=== PATIENT | male | born 1950 | race Caucasian/White ===

== ENCOUNTER 2020-11-14 05:25 | Observation (INO) | payer MEDICARE, OTHER ==
[2020-11-14] MEDS ORDERED: NITROGLYCERIN SL TABS 0.4 MG TAB SUBLINGUAL PRN (05:41)
--- NOTE | 2020-11-14 05:42 | ED ---
Chest Pain HPI - General Chief Complaint: Chest Pain Stated Complaint: hypotension Time Seen by Provider: 11/14/20 05:29 Source: patient, RN notes reviewed, old records reviewed Mode of arrival: ambulatory Limitations: no limitations - History of Present Illness Initial Comments: This is a 70-year-old male 7 transfer, patient accepted as a transfer patient for chest pain a she had chest pain prior to prior ER visit currently without chest pain. Recent cardiac surgery significant for bypass as well as valve replacement. Patient is unethical evaluation denying fever cough congestion and no current shortness of breath MD Complaint: chest pain -: hour(s) Onset: during rest Pain Location: substernal, left chest Pain Radiation: LUE Severity: mild Severity scale (1-10): 2 Quality: aching, sharp Consistency: intermittent, now resolved Improves With: nothing Worsens With: nothing Other Symptoms: palpitations Treatments Prior to Arrival: none - Related Data Home Medications Medication Instructions Recorded Confirmed Acetaminophen Tab [Tylenol Tab] 1,000 mg PO Q8H PRN 11/14/20 11/14/20 Aspirin EC [Ecotrin Low Dose] 81 mg PO HS 11/14/20 11/14/20 Atorvastatin [Lipitor] 40 mg PO HS 11/14/20 11/14/20 Clopidogrel Bisulfate [Plavix] 75 mg PO DAILY 11/14/20 11/14/20 Furosemide [Lasix] 20 mg PO DAILY 11/14/20 11/14/20 Gabapentin 300 mg PO TID 11/14/20 11/14/20 Metoprolol Tartrate [Lopressor] 50 mg PO BID 11/14/20 11/14/20 Omeprazole [PriLOSEC] 20 mg PO AC-SUPPER 11/14/20 11/14/20 metFORMIN HCL [Glucophage] 500 mg PO AC-BID 11/14/20 11/14/20 Allergies Allergy/AdvReac Type Severity Reaction Status Date / Time No Known Allergies Allergy Verified 11/14/20 06:24 Review of Systems ROS Statement: Those systems with pertinent positive or pertinent negative responses have been documented in the HPI. ROS Other: All systems not noted in ROS Statement are negative. EKG Findings - EKG Comments: EKG Findings:: EKG is sinus rhythm 72, [place] 172 QRS 106 QTc 455 Past Medical History Past Medical History: COPD, Diabetes Mellitus, Myocardial Infarction ([place]), Renal Disease History of Any Multi-Drug Resistant Organisms: None Reported Past Surgical History: Coronary Bypass/CABG Additional Past Surgical History / Comment(s): valve replacement , Past Psychological History: No Psychological Hx Reported Smoking Status: Former smoker Past Alcohol Use History: None Reported Past Drug Use History: None Reported - Past Family History Father Family Medical History: Cancer Mother Family Medical History: Myocardial Infarction ([place]) Sister(s) Family Medical History: Cancer Brother(s) Family Medical History: Myocardial Infarction ([place]) General Exam Limitations: no limitations General appearance: alert, in no apparent distress Head exam: Present: atraumatic, normocephalic, normal inspection Eye exam: Present: normal appearance, PERRL, EOMI. Absent: scleral icterus, conjunctival injection, periorbital swelling ENT exam: Present: normal exam, mucous membranes moist Neck exam: Present: normal inspection. Absent: tenderness, meningismus, lymphadenopathy Respiratory exam: Present: normal lung sounds bilaterally. Absent: respiratory distress, wheezes, rales, rhonchi, stridor Cardiovascular Exam: Present: regular rate, normal rhythm, normal heart sounds. Absent: systolic murmur, diastolic murmur, rubs, gallop, clicks GI/Abdominal exam: Present: soft, normal bowel sounds. Absent: distended, tenderness, guarding, rebound, rigid Extremities exam: Present: normal inspection, full ROM, normal capillary refill. Absent: tenderness, pedal edema, joint swelling, calf tenderness Back exam: Present: normal inspection Neurological exam: Present: alert, oriented X3, CN II-XII intact Psychiatric exam: Present: normal affect, normal mood Skin exam: Present: warm, dry, intact, normal color. Absent: rash Course Vital Signs 11/14/20 11/14/20 11/14/20 05:31 06:08 06:25 Temperature 98.7 F 98.7 F Pulse Rate 70 68 68 Pulse Rate [ [employer]ductor Package Symbol Stamper ] Respiratory 18 18 18 Rate Blood Pressure 122/60 140/68 140/68 Blood Pressure [Right Arm] O2 Sat by Pulse 99 98 98 Oximetry 11/14/20 06:32 Temperature 97.9 F Pulse Rate Pulse Rate [ 68 Sem[employer]ductor Package Symbol Stamper ] Respiratory 18 Rate Blood Pressure Blood Pressure 140/71 [Right Arm] O2 Sat by Pulse 97 Oximetry - Reevaluation(s) Reevaluation #1: 11/14/20 06:35 Attic record is reviewed 11/14/20 06:35 Spoke with transferring doctor regarding patient Reevaluation #2: 11/14/20 06:35 Transfer paperwork has been reviewed troponin 0.57 Chest Pain MDM - MDM 70 male DF with significant heart disease and recent heart disease history, patient will be admitted for cardiac observation and management Disposition Clinical Impression: Chest pain Disposition: ADMITTED IP TO THIS HOSP Condition: Undetermined Is patient prescribed a controlled substance at d/c from ED?: No
[2020-11-14] MEDS ORDERED: ACET/COD 300 MG/30 MG STARTER PACK 6 TAB BTL PO STA (05:45)
[2020-11-14] MEDS ORDERED: MORPHINE SULFATE 4 MG/ML SYRINGE IVP STA (05:45)
[2020-11-14 06:34] LABS: Basophils % (A) 1 %; Eosinophils # (A) 0.1 k/uL (0-0.7); Eosinophils % (A) 2 %; HCT 30.5 % (39.0-53.0); HGB 10.4 gm/dL (13.0-17.5); Lymphocytes # (A) 1.6 k/uL (1.0-4.8); Lymphocytes % (A) 23 %; MCH 32.4 pg (25.0-35.0); MCV 95.4 fL (80.0-100.0); Monocytes # (A) 0.6 k/uL (0-1.0); Monocytes % (A) 8 %; Neutrophils # (A) 4.4 k/uL (1.3-7.7); Neutrophils % (A) 64 %; Platelet Count 228 k/uL (150-450); RDW 15.3 % (11.5-15.5); WBC 6.8 k/uL (3.8-10.6)
[2020-11-14 06:40] LABS: Albumin 4.1 g/dL (3.5-5.0); Calcium 9.3 mg/dL (8.4-10.2); Potassium 5.3 mmol/L (3.5-5.1); Total Bilirubin 0.3 mg/dL (0.2-1.3); Total Protein 7.4 g/dL (6.3-8.2)
[2020-11-14 07:02] LABS: Creatine Kinase MB 2.2 ng/mL (0.0-2.4)
[2020-11-14 07:05] LABS: Glucose,Whole Blood 103 mg/dL (75-99)
[2020-11-14 07:19] LABS: Troponin I 0.129 ng/mL (0.000-0.034)
--- NOTE | 2020-11-14 11:18 | P.CRDCN ---
History of Present Illness Consult date: 11/14/20 Chief complaint: Chest pain History of present illness: This is a very pleasant 70-year-old gentleman who follow with a can patcher at the [facility] in [place] who underwent recently an open heart surgery and received aortic valve replacement along with coronary artery that is grafting 2 with unknown details at this point, the surgery was performed in September 2020 to , was transferred from another hospital to this hospital for further cardiac evaluation. He was in his usual state of health yesterday when he was at home and developed very mild discomfort at the left upper chest lasted for about 12 seconds only. He asked his to check his blood pressure and the pressure came in to be around 70 mm systolic. The patient presented to the emergency department at the local hospital where his can patcher was called at that point and advised the patient to hold lisinopril. The patient subsequently was transferred to this hospital. We consulted to see the patient mainly because of abnormal troponin which is less than 1 and seems to be flat. Currently the patient is chest pain-free and he did not have any more episodes of chest discomfort since yesterday. He denies any shortness of breath. No dizziness or lightheadedness and no feeling of heart racing or fluttering or syncope. No EKG is available at this point. Please note that the creatinine is elevated. The patient hemodynamically he is stable at this point. I am going to get a basic blood work including a d-dimer to rule out a PE. Beside that if the d-dimer came in to be abnormal we'll obtain a VQ scan and not a CTA because of the renal failure. Also I will obtain an echocardiogram with Doppler. Monitor the blood pressure and heart rate for additional 24 hours. Resume antiplatelet medications. And continue following up with him. Past Medical History Past Medical History: COPD, Diabetes Mellitus, Myocardial Infarction ([place]), Renal Disease Last Myocardial Infarction Date:: 1998 History of Any Multi-Drug Resistant Organisms: None Reported Past Surgical History: Coronary Bypass/CABG Additional Past Surgical History / Comment(s): valve replacement , Past Anesthesia/Blood Transfusion Reactions: No Reported Reaction Past Psychological History: No Psychological Hx Reported Smoking Status: Former smoker Past Alcohol Use History: None Reported Past Drug Use History: None Reported - Past Family History Father Family Medical History: Cancer Mother Family Medical History: Myocardial Infarction ([place]) Sister(s) Family Medical History: Cancer Brother(s) Family Medical History: Myocardial Infarction ([place]) Medications and Allergies Home Medications Medication Instructions Recorded Confirmed Type Acetaminophen Tab [Tylenol Tab] 1,000 mg PO Q8H PRN 11/14/20 11/14/20 History Aspirin EC [Ecotrin Low Dose] 81 mg PO HS 11/14/20 11/14/20 History Atorvastatin [Lipitor] 40 mg PO HS 11/14/20 11/14/20 History Clopidogrel Bisulfate [Plavix] 75 mg PO DAILY 11/14/20 11/14/20 History Furosemide [Lasix] 20 mg PO DAILY 11/14/20 11/14/20 History Gabapentin 300 mg PO TID 11/14/20 11/14/20 History Metoprolol Tartrate [Lopressor] 50 mg PO BID 11/14/20 11/14/20 History Omeprazole [PriLOSEC] 20 mg PO AC-SUPPER 11/14/20 11/14/20 History metFORMIN HCL [Glucophage] 500 mg PO AC-BID 11/14/20 11/14/20 History Allergies Allergy/AdvReac Type Severity Reaction Status Date / Time No Known Allergies Allergy Verified 11/14/20 06:24 Physical Exam Vitals: Vital Signs Temp Pulse Pulse Resp BP BP Pulse Ox 11/14/20 08:00 97.9 F 68 18 119/60 97 11/14/20 06:32 97.9 F 68 18 140/71 97 11/14/20 06:25 98.7 F 68 18 140/68 98 11/14/20 06:08 68 18 140/68 98 11/14/20 05:31 98.7 F 70 18 122/60 99 Intake and Output 11/13/20 11/14/20 11/14/20 22:59 06:59 14:59 Other: # Voids 1 Weight 82.1 kg - Constitutional General appearance: no acute distress - Respiratory Respiratory: bilateral: diminished - Cardiovascular Rhythm: regular Heart sounds: normal: S1, S2 Abnormal Heart Sounds: systolic murmur Results 11/14/20 06:07 11/14/20 06:07 Cardiac Enzymes 11/14/20 11/14/20 11/14/20 Range/Units 06:07 06:07 08:58 AST 31 (17-59) U/L CK-MB (CK-2) 2.2 (0.0-2.4) ng/mL Troponin I 0.129 H* 0.122 H* (0.000-0.034) ng/mL CBC 11/14/20 Range/Units 06:07 WBC 6.8 (3.8-10.6) k/uL RBC 3.20 L (4.30-5.90) m/uL Hgb 10.4 L (13.0-17.5) gm/dL Hct 30.5 L (39.0-53.0) % Plt Count 228 (150-450) k/uL Comprehensive Metabolic Panel 11/14/20 Range/Units 06:07 Sodium 134 L (137-145) mmol/L Potassium 5.3 H (3.5-5.1) mmol/L Chloride 103 (98-107) mmol/L Carbon Dioxide 22 (22-30) mmol/L BUN 46 H (9-20) mg/dL Creatinine 2.15 H (0.66-1.25) mg/dL Glucose 110 H (74-99) mg/dL Calcium 9.3 (8.4-10.2) mg/dL AST 31 (17-59) U/L ALT 39 (4-49) U/L Alkaline Phosphatase 116 (38-126) U/L Total Protein 7.4 (6.3-8.2) g/dL Albumin 4.1 (3.5-5.0) g/dL Current Medications Generic Name Dose Route Start Last Admin Trade Name Freq PRN Reason Stop Dose Admin Aspirin 325 mg 11/15/20 09:00 Aspirin 325 Mg Tab PO DAILY THANIA Nitroglycerin 0.4 mg 11/14/20 05:41 Nitroglycerin Sl Tabs 0.4 Mg Tab SUBLINGUAL Q5M PRN Chest Pain Intake and Output 11/13/20 11/14/20 11/14/20 22:59 06:59 14:59 Other: # Voids 1 Weight 82.1 kg 11/14/20 06:07 11/14/20 06:07 Assessment and Plan Assessment: Assessment #1 status post open heart surgery with aortic valve replacement and coronary artery bypass grafting #2 brief episodes of atypical chest discomfort #3 hypotension which was resolved #4 renal failure #5 multiple comorbid conditions Plan #1 restart the patient back on antiplatelet #2 restart the patient back on statin #3 obtain a basic blood work #4 obtain d-dimer #5 an echocardiogram was Doppler #6 12 please EKG
[2020-11-14 11:33] LABS: Glucose,Whole Blood 128 mg/dL (75-99)
[2020-11-14] MEDS ORDERED: ACETAMINOPHEN TAB 500 MG TAB PO PRN (11:59)
--- NOTE | 2020-11-14 12:00 | ECHOF ---
Referral Reason:elevTrop MEASUREMENTS -------- HEIGHT: 170.2 cm WEIGHT: 82.1 kg BP: 140/71 RVIDd: 3.5 cm (< 3.3) IVSd: 1.4 cm (0.6 - 1.1) LVIDd: 4.7 cm (3.9 - 5.3) LVPWd: 1.5 cm (0.6 - 1.1) IVSs: 2.0 cm LVIDs: 3.2 cm LVPWs: 2.0 cm LA Diam: 3.9 cm (2.7 - 3.8) LAESV Index (A-L): 26.95 ml/m Ao Diam: 3.2 cm (2.0 - 3.7) MV EXCURSION: 21.171 mm (> 18.000) MV EF SLOPE: 77 mm/s (70 - 150) EPSS: 0.8 cm MV E Erick: 1.14 m/s MV DecT: 233 ms MV A Erick: 1.01 m/s MV E/A Ratio: 1.12 AV maxP.87 mmHg AV meanP.93 mmHg RAP: 5.00 mmHg RVSP: 36.08 mmHg FINDINGS -------- Sinus rhythm. This was a technically adequate study. The left ventricular size is normal. There is moderate concentric left ventricular hypertrophy. O verall left ventricular systolic function is normal with, an EF between 60 - 65 %. The right ventricle is mildly enlarged. Normal LA size by volume 22+/-6 ml/m2. The right atrium is normal in size. Interatrial and interventricular septum intact. Peak/mean gradient across the Aortic Valve is 21.87mmHg / 7.93mmHg. Normally functioning bioprosthe tic valve. Mild mitral annular calcification present. Mild mitral regurgitation is present. Mild tricuspid regurgitation present. There is mild pulmonary hypertension. The right ventricular systolic pressure, as measured by Doppler, is 36.08mmHg. There is no pulmonic regurgitation present. The aortic root size is normal. Normal inferior vena cava with normal inspiratory collapse consistent with estimated right atrial pre ssure of 5 mmHg. There is no pericardial effusion. CONCLUSIONS -------- 1. The left ventricular size is normal. 2. There is moderate concentric left ventricular hypertrophy. 3. Overall left ventricular systolic function is normal with, an EF between 60 - 65 %. 4. The right ventricle is mildly enlarged. 5. Peak/mean gradient across the Aortic Valve is 21.87mmHg / 7.93mmHg. 6. Normally functioning bioprosthetic valve. 7. Mild mitral annular calcification present. 8. Mild mitral regurgitation is present. 9. Mild tricuspid regurgitation present. 10. There is mild pulmonary hypertension. 11. The right ventricular systolic pressure, as measured by Doppler, is 36.08mmHg. 12. There is no pericardial effusion. MARINE ELECTRICIAN APPRENTICE: Francy Lozano RDCS
[2020-11-14] MEDS ORDERED: FUROSEMIDE 20 MG TAB PO SCH (12:15)
[2020-11-14] MEDS: METOPROLOL TARTRATE 50 MG TAB PO SCH ×2 (12:27→21:17)
[2020-11-14] MEDS: metFORMIN 500 MG TAB PO SCH ×2 (12:27→17:18)
[2020-11-14] MEDS: CLOPIDOGREL 75 MG TAB PO SCH (12:27)
[2020-11-14 16:43] LABS: Glucose,Whole Blood 155 mg/dL (75-99)
[2020-11-14] MEDS: PANTOPRAZOLE 40 MG TABLET PO SCH (17:18)
[2020-11-14] MEDS: GABAPENTIN 300 MG CAP PO SCH ×2 (17:18→21:17)
[2020-11-14 20:16] LABS: Glucose,Whole Blood 151 mg/dL (75-99)
[2020-11-14] MEDS ORDERED: ASPIRIN 81 MG PO SCH (21:00)
[2020-11-14] MEDS ORDERED: ATORVASTATIN 40 MG TAB PO SCH (21:00)
[2020-11-14 23:06] LABS: Cholesterol 124 mg/dL (<200); HDL Cholesterol 32 mg/dL (40-60); LDL Cholesterol,Calculated 71 mg/dL (0-99); Triglycerides 104 mg/dL (<150)
--- NOTE | 2020-11-15 01:20 | P.HPIM ---
History of Present Illness H&P Date: 11/14/20 Chief Complaint: chest Pain Patient is a 70-year-old male with a known history of diabetes type 2 [id number], COPD, history of AR and history of coronary artery dis ease/CABG and previous history of smoking presents to ER with the complaints of chest pain mainly substernal with radiation to left upper extremity. Patient does have sharp aching pain intermittent without any associated nausea or vomiting. Chest pain lasted for few seconds. Blood pressure was found to be low with SBP in 70s when he checked at home. Patient initially presents to local hospital and was told to hold lisinopril due to hypotension. Subsequently patient was transferred to [facility]. Blood pressure was 122/60 on admission and pulse ox 99% on room air. Troponin 0 0.129, 0.122 and 0.131 BUN 46 and creatinine 2.15, sodium 134 and potassium 5.3 Lipase level is 446 on admission. Patient follows with [facility]. Review of Systems Constitutional: Patient denies any fever or chills . No generalized weakness or weight loss. Abdomen: Patient denied nausea vomiting and diarrhea and abdominal pain. Cardiovascular: Patient denies any chest pain or short of breath no palpitations. Respiratory: patient denied any cough or sputum production. No shortness of breath Neurologic: Patient denied any numbness or tingling headache. Musculoskeletal: Patient denies any complaints of joint swelling or deformity. Skin: Negative Psychiatric: Negative Endocrine: No heat or cold intolerance. No recent weight gain. Genitourinary: No dysuria or hematuria. All other 14 point ROS negative except the above Past Medical History Past Medical History: COPD, Diabetes Mellitus, Myocardial Infarction ([place]), Renal Disease Last Myocardial Infarction Date:: 1998 History of Any Multi-Drug Resistant Organisms: None Reported Past Surgical History: Coronary Bypass/CABG Additional Past Surgical History / Comment(s): valve replacement , Past Anesthesia/Blood Transfusion Reactions: No Reported Reaction Past Psychological History: No Psychological Hx Reported Smoking Status: Former smoker Past Alcohol Use History: None Reported Past Drug Use History: None Reported - Past Family History Father Family Medical History: Cancer Mother Family Medical History: Myocardial Infarction ([place]) Sister(s) Family Medical History: Cancer Brother(s) Family Medical History: Myocardial Infarction ([place]) Medications and Allergies Home Medications Medication Instructions Recorded Confirmed Type Acetaminophen Tab [Tylenol Tab] 1,000 mg PO Q8H PRN 11/14/20 11/14/20 History Aspirin EC [Ecotrin Low Dose] 81 mg PO HS 11/14/20 11/14/20 History Atorvastatin [Lipitor] 40 mg PO HS 11/14/20 11/14/20 History Clopidogrel Bisulfate [Plavix] 75 mg PO DAILY 11/14/20 11/14/20 History Furosemide [Lasix] 20 mg PO DAILY 11/14/20 11/14/20 History Gabapentin 300 mg PO TID 11/14/20 11/14/20 History Metoprolol Tartrate [Lopressor] 50 mg PO BID 11/14/20 11/14/20 History Omeprazole [PriLOSEC] 20 mg PO AC-SUPPER 11/14/20 11/14/20 History metFORMIN HCL [Glucophage] 500 mg PO AC-BID 11/14/20 11/14/20 History Allergies Allergy/AdvReac Type Severity Reaction Status Date / Time No Known Allergies Allergy Verified 11/14/20 06:24 Physical Exam Vitals: Vital Signs Temp Pulse Pulse Resp BP BP Pulse Ox 11/14/20 12:00 97.4 F L 72 18 149/67 96 11/14/20 08:00 97.9 F 68 18 119/60 97 11/14/20 06:32 97.9 F 68 18 140/71 97 11/14/20 06:25 98.7 F 68 18 140/68 98 11/14/20 06:08 68 18 140/68 98 11/14/20 05:31 98.7 F 70 18 122/60 99 Intake and Output 11/13/20 11/14/20 11/14/20 22:59 06:59 14:59 Other: # Voids 1 Weight 82.1 kg PHYSICAL EXAMINATION: Patient is lying in the bed comfortably, no acute distress, awake alert and oriented.. HEENT: Normocephalic. Neck is supple. Pupils reactive. Nostrils clear. Oral cavity is moist. Ears reveal no drainage. Neck reveals no JVD, carotid bruits, or thyromegaly. CHEST EXAMINATION: Trachea is central. Symmetrical expansion. Lung christian clear to auscultation and percussion. CARDIAC: Normal S1, S2 with no gallops. No murmurs ABDOMEN: Soft. Bowel sounds normal. No organomegaly. No abdominal bruits. Extremities: reveal no edema. No clubbing or cyanosis Neurologically awake, alert, oriented x3 with well-coordinated movements. No focal deficits noted Skin: No rash or skin lesions. Psychiatric: Coperative. Nonsuicidal Musculoskeletal: No joint swelling or deformity. Normal range of motion. Results CBC & Chem 7: 11/14/20 06:07 11/14/20 06:07 Labs: Abnormal Lab Results - Last 24 Hours (Table) 11/14/20 11/14/20 11/14/20 Range/Units 06:07 06:07 06:07 RBC 3.20 L (4.30-5.90) m/uL Hgb 10.4 L (13.0-17.5) gm/dL Hct 30.5 L (39.0-53.0) % Sodium 134 L (137-145) mmol/L Potassium 5.3 H (3.5-5.1) mmol/L BUN 46 H (9-20) mg/dL Creatinine 2.15 H (0.66-1.25) mg/dL Glucose 110 H (74-99) mg/dL POC Glucose (mg/dL) (75-99) mg/dL Troponin I 0.129 H* (0.000-0.034) ng/mL Lipase 446 H (23-300) U/L 11/14/20 11/14/20 11/14/20 Range/Units 07:02 08:58 11:30 RBC (4.30-5.90) m/uL Hgb (13.0-17.5) gm/dL Hct (39.0-53.0) % Sodium (137-145) mmol/L Potassium (3.5-5.1) mmol/L BUN (9-20) mg/dL Creatinine (0.66-1.25) mg/dL Glucose (74-99) mg/dL POC Glucose (mg/dL) 103 H 128 H (75-99) mg/dL Troponin I 0.122 H* (0.000-0.034) ng/mL Lipase (23-300) U/L 11/14/20 Range/Units 11:35 RBC (4.30-5.90) m/uL Hgb (13.0-17.5) gm/dL Hct (39.0-53.0) % Sodium (137-145) mmol/L Potassium (3.5-5.1) mmol/L BUN (9-20) mg/dL Creatinine (0.66-1.25) mg/dL Glucose (74-99) mg/dL POC Glucose (mg/dL) (75-99) mg/dL Troponin I 0.131 H* (0.000-0.034) ng/mL Lipase (23-300) U/L Thrombosis Risk Factor Assmnt - DVT/VTE Prophylaxis DVT/VTE Prophylaxis: Pharmacologic Prophylaxis ordered - Choose All That Apply Each Factor Represents 1 point: Obesity (BMI >25) Each Risk Factor Represents 2 Points: Age 61-74 years Each Risk Factor Represents 3 Points: Family history of DVT/PE Thrombosis Risk Factor Assessment Total Risk Factor Score: 6 Thrombosis Risk Factor Assessment Level: High Risk Assessment and Plan Assessment: Atypical chest pain with mildly elevated troponin level. Status post CABG and aortic valve replacement Hypotension resolved now. Acute kidney injury with creatinine level 2.15. Baseline not known. Elevated lipase level 445 Possible underlying CKD stage III Diabetes type 2 [id number] Hypertension DVT prophylaxis with heparin subcu Plan: Patient will be continued on telemetry monitoring and serial EKG and troponins. Continue with aspirin, statins and cardiology was consulted. Blood pressure medications is on hold. Lasix and lisinopril on hold at this time. Continue with metoprolol. 2D echocardiogram was ordered. Metformin is on hold due to elevated creatinine level and continue with insulin sliding scale. Follow-up closely. Time with Patient: Greater than 30
[2020-11-15 06:09] LABS: Glucose,Whole Blood 140 mg/dL (75-99)
[2020-11-15] MEDS: INSULIN ASPART (NovoLOG) 100 UNIT/ML VIAL SQ SCH ×3 (06:43→17:02)
[2020-11-15 07:43] LABS: Basophils % (A) 0 %; Eosinophils # (A) 0.1 k/uL (0-0.7); Eosinophils % (A) 2 %; HCT 34.1 % (39.0-53.0); HGB 10.9 gm/dL (13.0-17.5); Lymphocytes # (A) 1.5 k/uL (1.0-4.8); Lymphocytes % (A) 23 %; MCH 31.2 pg (25.0-35.0); MCHC 31.9 g/dL (31.0-37.0); MCV 97.7 fL (80.0-100.0); Mean Platelet Volume 8.3; Monocytes # (A) 0.6 k/uL (0-1.0); Monocytes % (A) 9 %; Neutrophils # (A) 4.3 k/uL (1.3-7.7); Neutrophils % (A) 65 %; Platelet Count 212 k/uL (150-450); RBC 3.49 m/uL (4.30-5.90); RDW 15.6 % (11.5-15.5); WBC 6.6 k/uL (3.8-10.6)
[2020-11-15 08:00] LABS: Calcium 9.8 mg/dL (8.4-10.2); Potassium 5.3 mmol/L (3.5-5.1)
[2020-11-15] MEDS: GABAPENTIN 300 MG CAP PO SCH ×2 (08:31→17:02)
[2020-11-15] MEDS: CLOPIDOGREL 75 MG TAB PO SCH (08:31)
[2020-11-15] MEDS: METOPROLOL TARTRATE 50 MG TAB PO SCH (08:31)
[2020-11-15] MEDS: HEPARIN SODIUM,PORCINE 5,000 UNIT/ML 1 ML VIAL SQ SCH ×2 (08:31→17:02)
[2020-11-15] MEDS ORDERED: ASPIRIN 325 MG TAB PO SCH (09:00)
--- NOTE | 2020-11-15 10:23 | P.PN ---
Subjective Progress Note Date: 11/15/20 Principal diagnosis: Valvular heart disease This is a very pleasant 70-year-old gentleman who follow with a accounts payable coordinator at the [facility] in [place] who underwent recently an open heart surgery and received aortic valve replacement along with coronary artery that is grafting 2 with unknown details at this point, the surgery was performed in September 2020, was transferred from another hospital to this hospital for further cardiac evaluation. He was in his usual state of health yesterday when he was at home and developed very mild discomfort at the left upper chest lasted for about 12 seconds only. He asked his to check his blood pressure and the pressure came in to be around 70 mm systolic. The patient presented to the emergency department at the local hospital where his accounts payable coordinator was called at that point and advised the patient to hold lisinopril. The patient subsequently was transferred to this hospital. We consulted to see the patient mainly because of abnormal troponin which is less than 1 and seems to be flat. The patient was seen this morning. He denies any symptoms of chest pain or chest discomfort or shortness of breath or dizziness or lightheadedness. Yesterday we ordered a d-dimer and that came in to be abnormal and I'm going to obtain a VQ scan because of the abnormal kidney function. If the VQ scan came in to be unremarkable the patient possibly can be discharged home. Also he underwent an echocardiogram which revealed normal LV function with normally functioning bioprosthetic aortic valve. Objective - Vital Signs Vital signs: Vital Signs Temp 97.7 F 11/15/20 08:00 Pulse 74 11/15/20 08:00 Resp 16 11/15/20 08:00 BP 116/65 11/15/20 08:00 Pulse Ox 97 11/15/20 08:00 Intake & Output 11/14/20 11/15/20 11/15/20 18:59 06:59 18:59 Intake Total 1260 0 180 Output Total 0 Balance 1260 0 180 Weight 80.8 kg Intake: Oral 1260 0 180 Output: Urine 0 Other: # Voids 2 0 - Constitutional General appearance: Present: no acute distress - Respiratory Respiratory: bilateral: CTA - Cardiovascular Rhythm: regular Heart sounds: normal: S1, S2 Abnormal Heart Sounds: Present: systolic murmur - Labs CBC & Chem 7: 11/15/20 06:58 11/15/20 06:58 Labs: Abnormal Lab Results - Last 24 Hours (Table) 11/14/20 11/14/20 11/14/20 Range/Units 06:07 11:30 11:35 RBC (4.30-5.90) m/uL Hgb (13.0-17.5) gm/dL Hct (39.0-53.0) % RDW (11.5-15.5) % D-Dimer (<0.60) mg/L FEU Sodium (137-145) mmol/L Potassium (3.5-5.1) mmol/L BUN (9-20) mg/dL Creatinine (0.66-1.25) mg/dL Glucose (74-99) mg/dL POC Glucose (mg/dL) 128 H (75-99) mg/dL Troponin I 0.131 H* (0.000-0.034) ng/mL HDL Cholesterol 32 L (40-60) mg/dL Lipase (23-300) U/L 11/14/20 11/14/20 11/15/20 Range/Units 16:40 20:13 06:05 RBC (4.30-5.90) m/uL Hgb (13.0-17.5) gm/dL Hct (39.0-53.0) % RDW (11.5-15.5) % D-Dimer (<0.60) mg/L FEU Sodium (137-145) mmol/L Potassium (3.5-5.1) mmol/L BUN (9-20) mg/dL Creatinine (0.66-1.25) mg/dL Glucose (74-99) mg/dL POC Glucose (mg/dL) 155 H 151 H 140 H (75-99) mg/dL Troponin I (0.000-0.034) ng/mL HDL Cholesterol (40-60) mg/dL Lipase (23-300) U/L 11/15/20 11/15/20 11/15/20 Range/Units 06:58 06:58 06:58 RBC 3.49 L (4.30-5.90) m/uL Hgb 10.9 L (13.0-17.5) gm/dL Hct 34.1 L (39.0-53.0) % RDW 15.6 H (11.5-15.5) % D-Dimer 2.39 H (<0.60) mg/L FEU Sodium 135 L (137-145) mmol/L Potassium 5.3 H (3.5-5.1) mmol/L BUN 38 H (9-20) mg/dL Creatinine 1.71 H (0.66-1.25) mg/dL Glucose 179 H (74-99) mg/dL POC Glucose (mg/dL) (75-99) mg/dL Troponin I (0.000-0.034) ng/mL HDL Cholesterol (40-60) mg/dL Lipase 386 H (23-300) U/L Assessment and Plan Assessment: Assessment #1 status post open heart surgery with aortic valve replacement and coronary artery bypass grafting #2 brief episodes of atypical chest discomfort #3 hypotension which was resolved #4 renal failure #5 multiple comorbid conditions Plan #1 continue the current medical regimen #2 order VQ scan to rule out a PE #3 follow-up with the patient
[2020-11-15 12:08] LABS: Glucose,Whole Blood 139 mg/dL (75-99)
[2020-11-15 12:12] VITALS: BP 136/65; PULSE 64; RESP 20; TEMP 98.3
--- NOTE | 2020-11-15 12:14 | NM ---
EXAMINATION TYPE: NM pul vent and perfuse DATE OF EXAM: 11/15/2020 COMPARISON: Chest x-ray from outside institution 11/14/2020 HISTORY: Elevated d-dimer, chest pain and difficulty breathing TECHNIQUE: Utilizing inhalation of 38.6 mCi Tc 99m DTPA aerosol and intravenous injection of 5.1 mCi of Tc 99m MAA, ventilation and perfusion images are acquired post injection in multiple projections. FINDINGS: Essentially normal radiotracer distribution is noted in the lungs perfusion scanning, perfusion scan shows better uptake than on ventilation images. There is no evidence of mismatched defects. IMPRESSION: Low probability for pulmonary embolism. Correlate for possible underlying COPD.
[2020-11-15] MEDS: PANTOPRAZOLE 40 MG TABLET PO SCH (17:02)
== END 2020-11-15 17:15 | disposition home or self-care (01) ==
LOC: EC 05:25 → 3SCARD 05:41
PROVIDERS: ADMIT Hospitalist; ATTEND Hospitalist
DX: R07.89 Other chest pain (principal); R77.8 Other specified abnormalities of plasma proteins; I95.9 Hypotension, unspecified; N17.9 Acute kidney failure, unspecified; R74.8 Abnormal levels of other serum enzymes; E11.9 Type 2 diabetes mellitus without complications; I10 Essential (primary) hypertension; J44.9 Chronic obstructive pulmonary disease, unspecified; I25.2 Old myocardial infarction; I25.10 Atherosclerotic heart disease of native coronary artery without angina pectoris; E66.9 Obesity, unspecified; Z95.1 Presence of aortocoronary bypass graft; Z95.2 Presence of prosthetic heart valve; Z79.899 Other long term (current) drug therapy; Z79.82 Long term (current) use of aspirin; Z79.84 Long term (current) use of oral hypoglycemic drugs; Z79.02 Long term (current) use of antithrombotics/antiplatelets; Z87.448 Personal history of other diseases of urinary system; Z87.891 Personal history of nicotine dependence; Z68.27 Body mass index [BMI] 27.0-27.9, adult; Z80.9 Family history of malignant neoplasm, unspecified; Z82.49 Family history of ischemic heart disease and other diseases of the circulatory system
CPT/HCPCS: 96372; 93005 ×2; 99285; 93306; 85379; 80061; 80053; 80048; 82550; 82553; 83690 ×2; 83735; 84484; 85025 ×2; 78582; G0378 ×2; A9540; A9567; J1644